=== PATIENT | male | born 1970 ===

== ENCOUNTER 2018-11-29 02:56 | Emergency (ER) | payer SELFPAY ==
[2018-11-29] MEDS ORDERED: NITRO-BID 2% TP ONE (03:48)
[2018-11-29 04:12] LABS: Bilirubin,Urine NEG (Negative); Blood,Urine NEG (Negative); Color,Urine Colorless (Yellow); Protein,Urine <15 mg/dL mg/dL (Negative); Urobilinogen,Urine < 2.0 mg/dL (<2.0); WBC,Urine < 1.0 /HPF (0.0-6.0)
[2018-11-29] MEDS ORDERED: TORADOL IM ONE (08:24)
--- NOTE | 2018-11-29 08:35 | Emergency Department Report ---
ED Back Pain/Injury HPI - General Chief Complaint: Abdominal Pain Stated Complaint: ABDOMINAL PAIN Time Seen by Provider: 11/29/18 08:13 Source: patient, EMS Limitations: No Limitations - History of Present Illness Initial Comments: Patient is a 48-year-old male who is complaining of 2-3 days of lower right back pain. Patient states it's a sharp stinging pain that he gets. Patient states it's worse with movement and walking. Patient states he's had no hematuria or dysuria but he does have a history of kidney stones and thinks this may be the cause of the patient's pain. Patient states the pain is 10 out of 10 however he is quite calm and appears very comfortable - Related Data Previous Rx's Medication Instructions Recorded Last Taken Type Ibuprofen [Motrin] 800 mg PO Q8HR PRN #20 tablet 11/29/18 Unknown Rx methOCARBAMOL [Robaxin TAB] 500 mg PO Q6H PRN #15 tablet 11/29/18 Unknown Rx traMADol [Ultram] 50 mg PO Q6HR PRN #10 tablet 11/29/18 Unknown Rx Allergies Allergy/AdvReac Type Severity Reaction Status Date / Time No Known Allergies Allergy Verified 11/29/18 03:04 ED Review of Systems ROS: Stated complaint: ABDOMINAL PAIN Other details as noted in HPI Comment: All other systems reviewed and negative ED Back Pain Physical Exam - Exam General: Vital signs noted. No distress. Alert and acting appropriately. Back/Abdomen: Yes Perilumbar Tenderness (right), No Abdominal Tenderness, No Perithoracic Tenderness, No Sacroiliac Tenderness, No Flank Tenderness, No Straight Leg Raise Pain Neuro: Yes Normal Sensation, Yes Normal DTR's, Yes Normal Gait, No Motor Weakness ED Course Vital Signs 11/29/18 03:07 Temperature 97.7 F Pulse Rate 95 H Respiratory 18 Rate Blood Pressure 143/90 O2 Sat by Pulse 95 Oximetry ED Medical Decision Making - Lab Data Lab Results 11/29/18 Range/Units 03:19 Urine Color Colorless (Yellow) Urine Turbidity Clear (Clear) Urine pH 5.0 (5.0-7.0) Ur Specific [place] 1.001 L (1.003-1.030) Urine Protein <15 mg/dl (Negative) mg/dL Urine Glucose (UA) Neg (Negative) mg/dL Urine Ketones Neg (Negative) mg/dL Urine Blood Neg (Negative) Urine Nitrite Neg (Negative) Urine Bilirubin Neg (Negative) Urine Urobilinogen < 2.0 (<2.0) mg/dL Ur Leukocyte Esterase Neg (Negative) Urine WBC (Auto) < 1.0 (0.0-6.0) /HPF Urine RBC (Auto) 1.0 (0.0-6.0) /HPF - Medical Decision Making Patient without hematuria or any abnormalities to the urine. Patient is not in any distress and does not appear to have obstructive uropathy clinical picture. The patient be treated with muscle relaxants and NSAIDs will be discharged home with low back pain instructions. Critical care attestation.: If time is entered above; I have spent that time in minutes in the direct care of this critically ill patient, excluding procedure time. ED Disposition Clinical Impression: Lumbago Qualifiers: Chronicity: acute Back pain laterality: right Sciatica presence: without sciatica Qualified Code(s): M54.5 - Low back pain Disposition: DC- TO HOME OR SELFCARE Is pt being admited?: No Does the pt Need Aspirin: No Condition: Stable Instructions: Back Pain (ED) Referrals: JOEY LEMON MD [Primary Care Provider] - 3-5 Days Time of Disposition: 08:35
[2018-11-29 09:00] VITALS: BP 121/76
== END 2018-11-29 08:58 | disposition home or self-care (01) ==
LOC: ED 02:56
DX: M54.5 Low back pain (principal)
CPT/HCPCS: 81001; 96372; 99283; J1885